=== PATIENT | female | born 1975 | race Caucasian/White ===

== ENCOUNTER 2024-08-12 15:36 | Outpatient (REF) | payer OTHER, SELFPAY | END 2024-08-12 15:37 | disposition home or self-care (01) | LOC: LBN 15:36 | PROVIDERS: Visit Provider Physician Assistant | DX: R30.0 Dysuria (principal); N39.0 Urinary tract infection, site not specified | CPT/HCPCS: 87077; 87086; 87186; 87480; 87510; 87660 ==